=== PATIENT | male | born 1955 | race Caucasian/White ===

== ENCOUNTER 2016-12-30 15:22 | Inpatient (IN) | payer BC ==
[~2016-12-30] VITALS: Ht 162.6 cm; Wt 73.5 kg
--- NOTE | ~2016-12-30 | ECH ---
Transthoracic Echocardiography Report (TTE) Demographics Patient Name PRICE SALEEM V Date of Study 01/01/2017 Patient Number [id number] Visit Number [id number] Date of 1955 Room Number 407 Accession Number [id number] Gender Male Age 61 year(s) Referring Charis Muñoz MD Cable Rigger Monie Maher Physician King Juan David Encarnacion MD [facility] Physician Interpreting Hallie Talamantes Hair Assistant Physician MD Supervising Ordering Physician King Juan David Encarnacion MD, MD/P Nurse Stress Manager Special Events Conclusions Summary Technically adequate exam. The estimated left ventricular ejection fraction is 55%. The left ventricle is moderately dilated . Mild concentric left ventricular hypertrophy. Diastolic assessment reveals Grade I diastolic dysfunction. Mildly dilated right ventricle with normal systolic function. The left atrium is mildly dilated by LA volume index measurement. The right atrium is mild to moderately dilated. Device lead seen in the right atrium. Mild tricuspid regurgitation by color Doppler. There is mild pulmonary hypertension. The pulmonary pressure (RVSP) is 36 mmHg. Mild mitral regurgitation by color Doppler. The ascending aorta appears mildly dilated. The maximum diameter measures 3.7 cm. Procedure Type of Study TTE procedure:Echo Complete SF. Procedure Date Date: 01/01/2017 Start: 03:25 PM Technical Quality: Fair Indications:NSVT and Coronary artery disease. Appropriate Use Criteria: 9 Height: 64 inches Weight: 151 pounds BSA: 1.74 m Rhythm: Within normal limits HR: 60 bpm BP: 132/79 mmHg M-Mode/2D Measurements LV Diastolic Dimension: 6.4 cm LV Systolic Dimension: 5.6 cm LV Septum Diastolic: 1.26 cm LV PW Diastolic: 1.25 cm AO Root Dimension: 3.11 cm Cardiac Output: 6.51 l/min LA Dimension: 4.91 cm Cardiac Index: 3.74 l/min*m RV Diastolic Dimension: 4.83 cm LA volume index: 40 ml/m LVOT: 2.04 cm LVOT VTI: 33.2 cm RV Base: 4.9 cm LV Stroke volume: 108.46 ml RV Mid: 2.6 cm LV Stroke volume index: 62.33 ml/m TAPSE: 1.88 cm TDI-S': 11 cm/s Doppler Measurements AV Peak Velocity: 1.35 m/s MV Peak E-Wave: 0.62 m/s AV Peak Gradient: 7.27 mmHg MV Peak A-Wave: 0.78 m/s AV Mean Gradient: 3.5 mmHg MV E/A Ratio: 0.8 LVOT Peak Velocity: 1 m/s AV Area (Continuity):3.06 cm MV Deceleration Time: 325 msec TR Velocity:2.8 m/s PV Peak Velocity: 1.02 m/s TR Gradient:31.36 mmHg PV Peak Gradient: 4.15 mmHg Estimated RAP:5 mmHg Estimated PASP: 36.36 mmHg Estimated RVSP: 36 mmHg RA Area: 24.83 cm Findings Left Ventricle The left ventricle is moderately dilated . Mild concentric left ventricular hypertrophy. Diastolic assessment reveals Grade I diastolic dysfunction. Right Ventricle Mildly dilated right ventricle with normal systolic function. Left Atrium The left atrium is mildly dilated by LA volume index measurement. Right Atrium The right atrium is mild to moderately dilated. Device lead seen in the right atrium. Mitral Valve Normal mitral valve structure and function. Mild mitral regurgitation by color Doppler. Aortic Valve Normal aortic valve structure and function. Tricuspid Valve Mild tricuspid regurgitation by color Doppler. There is mild pulmonary hypertension. The pulmonary pressure (RVSP) is 36 mmHg. Pulmonic Valve The pulmonic valve is not well visualized. No pulmonic valve regurgitation by color Doppler. Pericardial Effusion No evidence of pericardial effusion. Miscellaneous The ascending aorta appears mildly dilated. The maximum diameter measures 3.7 cm. Pleural Effusion No evidence of pleural effusion. Contractility Score LV regional wall motion:(0-Non visualized 1-Normal 2-Hypokinesis 3-Akinesis 4-Dyskinesis 5-Aneurysm) Signature
[~2016-12-30 15:22] MED LIST: ALPHAGAN P5 ML OD; ATROVENT HFA12.9 G1 IH; CARVEDILOL25 MG PO; COZAAR100 MG PO; HYDROCODONE 7.7.5 MG PO; IMDUR DPS30 MG PO; PRILOSEC DPS20 MG PO; PROVENTIL HFA6.7 GM IH; XARELTO15 MG PO; XARELTO20 MG PO; ZOCOR DPS40 MG PO
--- NOTE | 2017-01-01 23:22 | ER ---
ADMIT: 12/30/2016 RM/LOC: 407 [facility] MR#: [id number] [address] [place], [place] [address] PRICE SALEEM V [address] [facility] [place] [address] Emergency Room Report SEX: M AGE: 61 : 1955 DATE: 12/30/2016 ADDENDUM: CHIEF COMPLAINT: Dizziness. HISTORY OF PRESENT ILLNESS: This is a 61-year-old male, who presented yesterday with similar symptoms of dizziness and vomiting. This started after he was cutting some wood and fitting the wood in the wheelbarrow. He was treated in the ER, felt better, sent home, and today he comes in with worsening symptoms. COURSE IN THE EMERGENCY ROOM: An IV was started. He was given a 500 mL bolus of normal saline, Valium a total of 4 mg IV, and meclizine 25 mg p.o. He is still not able to sit up without feeling like he is going to fall over or without nausea, vomiting. At that time, I did order a CT head and CTA of his chest. CT head is negative. A CTA chest did show some right-sided nodules with some atelectasis. CBC, CMP, troponin, CK, CK-MB, BNP, carboxyhemoglobin, EKG were done, everything essentially negative on that part. EKG showed sinus rhythm at a rate of 83. Carboxyhemoglobin was 1.5. CBC is normal except for white count of 4.6, hemoglobin 12.6, platelets 142. CMP was normal except for elevated bilirubin at 2.2, glucose of 136, GFR low at 59. CK, MB, and troponin are all normal. His proBNP was 1605, which has improved since yesterday. I did speak with Dr. Eastman regarding this patient. I am not able to discharge him because he is not able to stand up on his own due to his vertigo and nausea. He is admitting for observation. I did tell him that he needs a followup on the nodules in his lungs, and elevated bilirubin. CLINICAL IMPRESSION: 1. Intractable vertigo. 2. Right lung nodule. 3. Elevated bilirubin. BENJAMIN Porter / Gerardo Viera MD / tita JOB #: [id number] CC: Familia Vizcaino DO, Attending Physician Familia Vizcaino DO, Family Physician
[2017-01-02] MEDS ORDERED: COZAAR100 MG PO (19:16)
[2017-01-02] MEDS ORDERED: ZOCOR DPS40 MG PO (19:16)
[2017-01-02] MEDS ORDERED: ALPHAGAN-P5 ML OU (19:16)
[2017-01-02] MEDS ORDERED: IMDUR DPS30 MG PO (19:16)
[2017-01-02] MEDS ORDERED: CARVEDILOL25 MG PO (19:16)
[2017-01-02] MEDS ORDERED: PRILOSEC DPS20 MG PO (19:17)
[2017-01-02] MEDS ORDERED: ANTIVERT-DPS25 MG PO (19:28)
[2017-01-02] MEDS ORDERED: NITROSTAT0.4 MG SL (19:28)
--- NOTE | 2017-01-07 08:25 | HP ---
ADMIT: 12/30/2016 RM/LOC: 407 [facility] MR#: [id number] [address] [place], [place] [address] PRICE MON V [address] [facility] [place] [address] History and Physical SEX: M AGE: 61 : 1955 DATE OF SERVICE: 12/31/2016 REASON FOR HOSPITALIZATION: Vertigo, nausea, and vomiting. HISTORY OF PRESENT ILLNESS: Mr. Mon is a 61-year-old, patient of mine, who on Thursday developed vertigo with nausea. He reports that he came to the emergency room, was treated and released and thought he was getting better. He had scheduled outpatient followup in my clinic, but then became extremely dizzy with nausea and vomiting to the point where he could not lift his head off his pillow. The local EMS was called. They went to his home and he was unable to get up or walk, so they brought him to the emergency room, where evaluation was undertaken and arrangements for admission. PAST MEDICAL HISTORY: The patient does have a significant history of coronary artery disease, coronary artery bypass graft, peripheral arterial disease, COPD, hypertension, hyperlipidemia, reflux back, history of DVT in the right upper extremity. His bypass surgery occurred back in the year 1999. He has a history of sleep apnea, questionable CPAP compliance. He had a pacemaker placed in 2010. History of hip fracture with surgical fixation. SOCIAL HISTORY: Socially, remote history of tobacco. No alcohol. He lives with his common-law . FAMILY HISTORY: Noncontributory. MEDICATIONS: 1. ProAir. 2. Losartan. 3. Meloxicam. 4. Isordil. 5. Atrovent. 6. Alphagan. 7. Aspirin. 8. Carvedilol. 9. Simvastatin. 10.Omeprazole. For specifics of dosing, please refer to his admission orders. REVIEW OF SYSTEMS: He reports currently that his dizziness and nausea have significantly improved. He also reports he has not eaten since Thursday of this week. He is not having any abdominal pain, diarrhea, bleeding, fevers, chills, or sweats. He does report some leg cramping discomfort and he does have known peripheral arterial disease, which has been followed through the [facility]/Dr. Chaudhry. Currently denying chest pain or palpitation. PHYSICAL EXAMINATION: GENERAL: He is pleasant, alert. VITAL SIGNS: Within healthy range. HEENT: Ear, nose, and throat is grossly normal. No JVD or bruit. ADMIT: 12/30/2016 RM/LOC: 407 [facility] MR#: [id number] [address] [address] PRICE MON V [address] [place] [address] History and Physical SEX: M AGE: 61 : 1955 HEART: Regular. LUNGS: Clear. ABDOMEN: Soft. EXTREMITIES: Reveal no edema. NEUROLOGIC: Nonfocal. LABORATORY DATA: Overnight, he did have a burst of nonsustained ventricular tachycardia. CAT scan showed right pulmonary nodules, some of which are concerning with reported spiculated borders. Further workup was recommended per Radiology dictation. His bilirubin is elevated, otherwise, labs are reviewed. He does have mild hypokalemia. IMPRESSION: 1. Vertigo, nausea and vomiting, improved. 2. Asymptomatic nonsustained ventricular tachycardia. 3. Pulmonary nodules. 4. Underlying peripheral arterial disease, chronic obstructive pulmonary disease, and coronary disease with pacemaker. PLAN: We will put him on Telemetry, evaluate him metabolically, replace his potassium and electrolytes as necessary. We will slowly increase his activity and diet. I will plan to have him undergo arterial and venous Dopplers of the legs, and CT abdomen and pelvis and further workup of his pulmonary nodules. We will consider asking the counseling department chair to see if we have any further concerns with his rhythm. Familia Vizcaino DO/ tita JOB #: [id number] CC: Familia Vizcaino, Attending Physician Familia Vizcaino, Family Physician
--- NOTE | 2017-01-16 12:51 | CO ---
ADMIT: 12/30/2016 RM/LOC: 407 [facility] MR#: [id number] [facility]#: [id number] [address] [address] PRICE SALEEM V [address] [facility] [address] Consultation SEX: M AGE: 61 : 1955 DATE OF CONSULTATION: 01/01/2017 ATTENDING PHYSICIAN: Familia Vizcaino CONSULTING PHYSICIAN: Juan David Parnell MD REASON FOR CONSULT: Nonsustained ventricular tachycardia. HISTORY OF PRESENT ILLNESS: Pirce is a pleasant 61-year-old male, whom we are asked to have a Cardiology consult for an SVT. He presented to the ER on Thursday with lightheadedness and dizziness. He developed some nausea, vomiting, and he presented to the ER for his symptoms. The ER discharged him, but he came back on Thursday with worsening symptoms. Today, the patient denies chest pain, shortness of breath, dizziness, nausea, or vomiting. His cardiac enzymes were negative in the ER. His EKG showed sinus rhythm at a rate of 83. He was not discharged on Thursday from the ER because he was not able to stand up on his own due to his vertigo and nausea. PAST MEDICAL HISTORY: Coronary artery disease, coronary artery bypass graft in 2000, PAD, COPD, hypertension, hyperlipidemia, history of DVT in the right upper extremity, sleep apnea, pacemaker placed in 2010. ALLERGIES: NO KNOWN MEDICATION ALLERGIES. MEDICATIONS: 1. ProAir. 2. Losartan. 3. Meloxicam. 4. Isosorbide mononitrate ER. 5. Atrovent HFA two puffs. 6. Alphagan. 7. Aspirin. 8. Carvedilol 25 mg. 9. Simvastatin 40 mg. 10.Omeprazole 20 mg. FAMILY HISTORY: Unremarkable. SOCIAL HISTORY: The patient drinks caffeine occasionally. He has a history of smoking for 35 years, but he quit 16 years ago. He drinks alcohol occasionally. REVIEW OF SYSTEMS: GENERAL: Denies fatigue, fever, chills, sweats, rash, or weight loss. EYES: Denies double vision, blurred vision, cataracts, or glaucoma. ENT: Denies hearing loss or problems with nose, mouth or throat. PULMONARY: Denies cough, sputum production, asthma, emphysema or bronchitis. Denies snoring loudly, wakefulness at night, or fatigue upon awakening. GASTROINTESTINAL: Denies heartburn or difficulty swallowing. No change in ADMIT: 12/30/2016 RM/LOC: 407 [facility] MR#: [id number] [address] [address] PRICE SALEEM V [address] [place] [address] Consultation SEX: M AGE: 61 : 1955 bowel habits. Denies dark or bloody stools. No history of ulcers, hiatal hernia, or gallbladder or liver disease. GENITOURINARY: Denies dysuria, hematuria, nocturia, urinary tract infection, or kidney stones. Denies history of renal insufficiency or failure. MUSCULOSKELETAL: Denies history of arthritis or gout. Denies muscle or joint pains. ENDOCRINE: Denies history of thyroid dysfunction or diabetes. HEMATOLOGIC: Denies history of anemia, easy bruising, or cancer. NEUROLOGIC: Denies chronic headaches, dizziness, syncope, stroke, seizures or numbness or tingling. PSYCHIATRIC: Denies history of mental illness or feelings of depression. PHYSICAL EXAMINATION: VITAL SIGNS: Blood pressure 127/80, heart rate 72, respirations 14, temperature 98.9, oxygen 94%. SKIN: [place], warm and dry. EYES: Sclerae clear. No xanthelasmas. ENT: Oral mucosa is pink and moist. No jugular venous distention or carotid bruits. CHEST: Respirations are even and unlabored. Lungs are clear to auscultation. HEART: Regular rate and rhythm. Normal S1, S2. No murmurs, rubs or gallops. ABDOMEN: Soft and nontender. MUSCULOSKELETAL: Gait is normal. EXTREMITIES: Peripheral pulses palpable. No clubbing, cyanosis or edema. PSYCHIATRIC: Alert and oriented. Mood and affect are appropriate. DIAGNOSTIC DATA: Sodium 143, potassium 3.8, chloride 109, glucose 103, TSH 0.273, creatinine 1.2. Venous Doppler results are negative. Arterial Doppler showed atherosclerotic disease bilaterally. ASSESSMENT AND PLAN: Per Dr. Parnell: 1. Supraventricular tachycardia. 2. Coronary artery disease. 3. Coronary artery bypass graft. 4. Peripheral arterial disease. 5. Hypertension. 6. Deep vein thrombosis. Thank you for the consult. BENJAMIN Reveles Student / Juan David Parnell MD / tita JOB #: [id number] CC: Familia Vizcaino, Attending Physician Familia Vizcaino, Family Physician
--- NOTE | 2017-02-16 08:28 | DS ---
ADMIT: 12/30/2016 RM/LOC: 407 [facility] MR#: [id number] [address] [address] PRICE SALEEM V [address] [facility] [place] [address] General Discharge Summary SEX: M AGE: 61 : 1955 ADMISSION DATE: 12/30/2016 DISCHARGE DATE: 01/02/2017 REASON FOR HOSPITALIZATION: Dizziness, vertigo, and nausea. HISTORY OF PRESENT ILLNESS: A 61-year-old, male patient, who developed vertigo and nausea, came to the emergency room was treated and released and thought he was getting better, but then went on to proceed with more significant dizziness, nausea, and vomiting to the point where he was not able to lift his head off his pillow. He called the emergency squad, was brought to the Emergency Department, and we admitted him for further care. HOSPITAL COURSE: He was admitted to telemetry where we gave him IV fluids, nausea management, and he had improvement. However, we did find on CAT scan of his chest, a right lung nodule. We did also a CAT scan of his brain, but there were no acute issues. He did have some nonsustained ventricular tachycardia, and we therefore also evaluated him metabolically with magnesium thyroid function, lipids, and potassium assessment. He was slightly hypokalemic and potassium was infused IV. We restarted his home CPAP. His CT scan did show a 4 cm right renal mass. I consulted Interventional Radiology to consider appropriate approach to his pulmonary nodule and renal mass. They recommended that we hold his aspirin and that we pursue biopsy on an outpatient basis after he had been off his aspirin. I did ask Cardiology to consult and they recommended simple observation along with metabolic evaluation mentioned above for his nonsustained ventricular tachycardia. I did perform echocardiogram. On 01/02, he was feeling better, just slightly dizzy with head motion. His blood pressure was moderately elevated. We did perform an MRI followup of his brain and thereafter decided he would be appropriate for dismissal. We dismissed him with plans for biopsy on 01/10 after holding his aspirin and all anti-inflammatory therapies. We also made ADMIT: 12/30/2016 RM/LOC: 407 [facility] MR#: [id number] [address] [address] PRICE SALEEM V [address] [place] [address] General Discharge Summary SEX: M AGE: 61 : 1955 arrangements for outpatient physical therapy for vestibular training and he was to return to see me in 5 to 7 days. We did note that he had a pacemaker and so the dismissal MRI of his brain was canceled and he was allowed to go home on 01/02/2017. He was to follow up with waterproof bag cutting machine operator and Dr. Parnell in 6 weeks. FINAL DIAGNOSES: 1. Vertigo. 2. Nonsustained ventricular tachycardia. 3. Hypokalemia. 4. Pulmonary nodule. 5. Renal mass. Familia Vizcaino DO/ modl JOB #: [id number] CC: Familia Vizcaino DO, Attending Physician Familia Vizcaino DO, Family Physician
== END 2017-01-02 13:30 | disposition home or self-care (01) | DRG 149 ==
LOC: ER 15:22 → 4PCU 18:05
PROVIDERS: ADMIT Internal Medicine
DX: R42 Dizziness and giddiness (principal); I47.2 Ventricular tachycardia; I10 Essential (primary) hypertension; E87.6 Hypokalemia; I25.10 Atherosclerotic heart disease of native coronary artery without angina pectoris; I73.9 Peripheral vascular disease, unspecified; J44.9 Chronic obstructive pulmonary disease, unspecified; G47.30 Sleep apnea, unspecified; R91.8 Other nonspecific abnormal finding of lung field; N28.89 Other specified disorders of kidney and ureter; E78.5 Hyperlipidemia, unspecified; K21.9 Gastro-esophageal reflux disease without esophagitis; Z86.718 Personal history of other venous thrombosis and embolism; Z95.0 Presence of cardiac pacemaker; Z87.891 Personal history of nicotine dependence; Z79.82 Long term (current) use of aspirin

== ENCOUNTER 2017-02-01 00:25 | Emergency (ER) | payer BC ==
[~2017-02-01 00:25] MED LIST changes: +ALPHAGAN-P5 ML OU; +ANTIVERT-DPS25 MG PO; +NITROSTAT0.4 MG SL
--- NOTE | 2017-02-01 19:13 | ER ---
ADMIT: 02/01/2017 RM/LOC: ER [facility] MR#: [id number] [address] [facility] [address] PRICE SALEEM V [address] [facility] [address] Emergency Room Report SEX: M AGE: 61 : 1955 DATE: 02/01/2017 The patient is a 61-year-old male, status post recent bilateral femoral atherectomy, complains of ecchymosis and scrotal swelling, has not been wearing any support hose or avoiding high sodium foods. Exam remarkable for nontoxic, afebrile male with no pulsatile mass in his groin, small scrotal hematoma. Venous Doppler negative in both legs for DVT. No evidence of pseudoaneurysm in both groins. Advised low-sodium diet. Follow up with Dr. Vizcaino this week. Inder Ashby MD/ tita JOB #: [id number] CC: Jacob Quintanilla MD, Attending Physician Familia Vizcaino DO, Family Physician Familia Vizcaino DO
== END 2017-02-01 03:30 | disposition home or self-care (01) ==
LOC: ER 00:25
DX: S30.22XA Contusion of scrotum and testes, initial encounter (principal); R60.0 Localized edema; E78.5 Hyperlipidemia, unspecified; I10 Essential (primary) hypertension; Z86.718 Personal history of other venous thrombosis and embolism; Z79.01 Long term (current) use of anticoagulants; Z79.82 Long term (current) use of aspirin; Z79.899 Other long term (current) drug therapy; X58.XXXA Exposure to other specified factors, initial encounter